=== PATIENT | female | born 1955 ===

== ENCOUNTER 2019-04-09 07:15 | Day surgery (SDC) | payer OTHER ==
[~2019-04-09 07:15] MED LIST: LIPITOR20 MG PO; SYNTHROID100 MCG PO
[2019-04-09] MEDS ORDERED: TYLENOL EXTRA500 MG PO (12:11)
== END 2019-04-09 15:00 | disposition home or self-care (01) ==
LOC: CIR.AMB 07:15 → EDBD 11:45 → CIR.AMB 11:45
DX: N95.0 Postmenopausal bleeding (principal)